=== PATIENT | male | born 1960 | race Caucasian/White ===

== ENCOUNTER 2019-12-31 18:04 | Emergency (ER) | payer BC ==
[2019-12-31] MEDS ORDERED: Tetracaine HCl/PF 0.5% 4 ML Bottle EYELF ONE (18:15)
[2019-12-31] MEDS ORDERED: Fluorescein 1 MG Ophth Strip EYELF ONE (18:16)
[2019-12-31] MEDS ORDERED: Ciprofloxacin 0.3% Ophth Soln 2.5 ML Bottle EYELF ONE (18:29)
--- NOTE | 2019-12-31 18:31 | EDM.PDOC ---
ED HPI GENERAL MEDICAL PROBLEM - General Chief Complaint: ENT Problem Stated Complaint: SOMETHING IN EYE Time Seen by Provider: 12/31/19 18:15 Source of Information: Reports: Patient History Limitations: Reports: No Limitations - History of Present Illness INITIAL COMMENTS - FREE TEXT/NARRATIVE: Patient presents to ER with complaints of a foreign object in his left eye. He was cutting on laminate pan outside today when a piece flew in to his eye. Did try to clean out his eye with a q-tip as well as did rinse eye but still feels as if something present. Eye is tearing, sensitive to light and has discomfort. No visual changes. Onset: Today, Sudden Duration: Minutes: Location: Reports: Face Quality: Reports: Burning Severity: Mild Associated Symptoms: Reports: No Other Symptoms Left Eye Pain Score (Numeric/FACES): 8 - Related Data Allergies Allergy/AdvReac Type Severity Reaction Status Date / Time codeine Allergy Hives Verified 12/31/19 18:18 Penicillins Allergy Hives Verified 12/31/19 18:18 Sulfa (Sulfonamide Allergy Other Verified 12/31/19 18:18 Antibiotics) Home Meds: Home Meds Montelukast [Singulair] 10 mg PO DAILY 08/28/19 [History] Past Medical History HEENT History: Reports: Allergic Rhinitis, Hard of Hearing, Other (See Below) Other HEENT History: tinnitis. tympanosclerosis Cardiovascular History: Reports: High Cholesterol, Syncope Respiratory History: Reports: Other (See Below) Other Respiratory History: wilbur bullosa Musculoskeletal History: Reports: Back Pain, Chronic, Other (See Below) Other Musculoskeletal History: olecranon bursitis. medial epicondylitis. r scapholunate ligament tear. SLAC. cervical spondylosis. cervicalalgia. left shoulder impingement syndrome. post traumatic osteoarthitis bilateral shoulders. elbow arthritis Neurological History: Reports: Concussion, Migraines, Other (See Below) Other Neuro History: headaches. radiculopathy of lumbar and thorasic. paresthesia of right arm Psychiatric History: Reports: Other (See Below) Other Psychiatric History: admustment reaction - Past Surgical History HEENT Surgical History: Reports: Tonsillectomy, Other (See Below) Other HEENT Surgeries/Procedures: stapedectomy GI Surgical History: Reports: Colonoscopy Musculoskeletal Surgical History: Reports: Arthroscopic Knee, Shoulder Surgery, Other (See Below) Other Musculoskeletal Surgeries/Procedures:: lumbar laminectomy. cervical spine fusion Social & Family History - Tobacco Use Smoking Status *Q: Never Smoker ED ROS GENERAL - Review of Systems Review Of Systems: Comprehensive ROS is negative, except as noted in HPI. ED EXAM GENERAL W FULL EYE - Physical Exam Exam: See Below Exam Limited By: No Limitations General Appearance: Alert, WD/WN, No Apparent Distress Eye Exam: Left Eye: Conjunctival Injection, Corneal Abrasion, Bilateral Eye: EOMI, PERRL Eyelids: Bilateral: Normal Appearance Conjunctiva & Sclera: Left: Foreign Body (small fragment removed from 9 o'clock region of his eye), Injected Cornea Exam: Left: Corneal Abrasion (has linear horizontal abrasion across iris region of eye) Extraocular Movements: Bilateral: Intact Pupils: Normal Accommodation Pupillary Size: Bilateral: 4 mm Pupillary Reaction: Bilateral: Brisk ED EYE w/ Add Procedure - Eye Procedure Alcaine Drops Administered: Yes Eye FB Removal: Removal w/ Cotton Swab Eye Irrigated w/ Saline (ccs): 10 Course - Vital Signs Last Recorded V/S: Last Vital Signs Temp 98.2 F 12/31/19 18:10 Pulse 76 12/31/19 18:10 Resp 16 12/31/19 18:10 BP 124/69 12/31/19 18:10 Pulse Ox 96 12/31/19 18:10 - Orders/Labs/Meds Meds: Medications Discontinued Medications Generic Name Dose Route Start Last Admin Trade Name Freq PRN Reason Stop Dose Admin Ciprofloxacin 1 ml 12/31/19 18:29 Ciloxan 0.3% Ophth Soln EYELF 12/31/19 18:30 ONETIME ONE Fluorescein Sodium 1 mg 12/31/19 18:16 Ful-Chelsea EYELF 12/31/19 18:17 ONETIME ONE Tetracaine HCl 1 ml 12/31/19 18:15 Tetracaine 0.5% Steri-Unit Tran EYELF 12/31/19 18:16 ONETIME ONE Departure - Departure Time of Disposition: 18:30 Disposition: Home, Self-Care 01 Condition: Good Clinical Impression: Corneal abrasion, left Qualifiers: Encounter type: initial encounter Qualified Code(s): S05.02XA - Injury of conjunctiva and corneal abrasion without foreign body, left eye, initial encounter - Discharge Information *PRESCRIPTION DRUG MONITORING PROGRAM REVIEWED*: No *COPY OF PRESCRIPTION DRUG MONITORING REPORT IN PATIENT BECCA: No Instructions: Eye Foreign Body, [id number], Corneal Abrasion, [id number] Referrals: PCP,None [Primary Care Provider] - Forms: ED Department Discharge Additional Instructions: 1. Start Ciloxan 3 drops to left eye three times a day for 7 days 2. Wear sun protection 3. Follow up if any vision changes occur or have increased pain Sepsis Event Note (ED) - Evaluation Sepsis Screening Result: No Definite Risk - Focused Exam Vital Signs: Vital Signs Temp Pulse Resp BP Pulse Ox 12/31/19 18:10 98.2 F 76 16 124/69 96
[2019-12-31 18:34] VITALS: BP 124/69; PULSE 76
== END 2019-12-31 18:49 | disposition home or self-care (01) ==
LOC: VM.ED 18:04
DX: T15.12XA Foreign body in conjunctival sac, left eye, initial encounter (principal); Z88.5 Allergy status to narcotic agent; Z88.0 Allergy status to penicillin; Z88.2 Allergy status to sulfonamides; Z79.899 Other long term (current) drug therapy
CPT/HCPCS: 65205; 99283; A9270-GY

== ENCOUNTER 2021-05-01 11:25 | Day surgery (SDC) | payer BC ==
[2021-05-01] MEDS: Lactated Ringers 1,000 ML IV SCH (11:55)
[2021-05-01] MEDS ORDERED: Propofol 200 MG/20 ML SDV ONE ×2 (12:39→14:07)
[2021-05-01] MEDS ORDERED: fentaNYL 100 MCG/2 ML SDV ONE (13:45)
[2021-05-01 14:40] VITALS: BP 131/74; PULSE 65
--- NOTE | 2021-05-02 09:23 | OR ---
DATE OF SURGERY: 05/01/2021 PREOPERATIVE DIAGNOSIS: Dysphagia, chronic. This seems to have developed since his previous neck surgery back in 07/2015. He gets choking sensation when bending over and has to regurgitate food frequently including breads, meats, and hot dogs. Denies any lower substernal dysphagia symptoms as symptoms are exclusively in the neck area. POSTOPERATIVE DIAGNOSES: 1. Moderate duodenitis of the duodenal bulb. Cold biopsy x4 bites taken of irritated prominent tissue there. 2. Mild diffuse gastritis. Cold biopsy x2 bites taken from the antrum. 3. Mild lower esophagitis. No strictures or rings noted. 4. Mild bile reflux noted within the gastric body. PROCEDURE: Esophagogastroduodenoscopy with cold biopsy x2 sites (duodenal bulb and antrum). SURGEON: Nam Cleveland M.D. ANESTHESIA: Monitored anesthesia care. DESCRIPTION OF PROCEDURE: Mitchell is a 61-year-old male who was brought to the endoscope suite after discussion of risks and benefits (including but not limited to reaction to medication, bleeding, infection, aspiration, perforation). Informed consent was obtained for monitored anesthesia care and esophagogastroduodenoscopy along with possible biopsy and/or dilatation. Pre-procedure exam including oral cavity was unremarkable. IV, oxygen, and monitors were placed. Patient was placed in the left lateral position and sedation was administered. A bite block was placed gently and scope lightly lubricated and passed through the bite block and over the tongue. Once I got into the hypopharynx, the patient did work the bite block out and had gagging episode due to oral secretions. It did come out and then we replaced the bite block before attempting to go back in. Scope was reinserted and then passed through the cricopharynx and into the esophagus. The scope was then passed through the distal esophagus and the GE junction was visualized and photographed. The GE junction was remarkable for some mild lower esophagitis. No strictures, rings, or masses were noted. The scope was advanced to the stomach and the gastric leak was suctioned. The patient did have some mild bile reflux noted. Pylorus was identified and intubated and then the scope was advanced to the third portion of the duodenum. The second and third portions of the duodenum were unremarkable. The duodenal bulb was visualized and revealed moderate duodenitis with prominent inflammatory-like tissue within the duodenal bulb. Cold biopsy x4 bites taken to exclude any dysplasia. The scope was then brought back into the stomach and the pylorus and antrum were remarkable for mild diffuse gastritis. Biopsies for H pylori and path were obtained from the antrum. Scope was then retroflexed to visualize the angularis, fundus, body, and cardia. These were remarkable for mild diffuse gastritis. During the biopsies from the duodenum and antrum, the patient again worked the bite block free and started the bite down on the scope. He also had gagging episode and woke up through the anesthesia. I did have to come all the way out suctioning on the way as he was gagging. After we got him sedated and the bite block replaced, I went back in and finished the biopsies from the duodenal bulb and antrum. Stomach was desufflated of air and then scope slowly withdrawn. Esophagus was closely visualized during withdrawal all the way into the posterior pharynx and this was unremarkable. The patient tolerated the procedure well and went to recovery in stable condition. The patient was monitored until at baseline status. Findings and discharge instructions were reviewed and the patient was discharged in good condition. COMPLICATIONS: None, but the patient did struggle with keeping the bite block in which caused several pauses in the procedure. The bite block did cause irritation to his gumline and lip with some mild bleeding. He had multiple gagging episodes with copious oral secretions. He did not like the scope sitting around the cricopharynx area as this does seem to be the area of his dysphagia symptoms. TOTAL TIME: 17 minutes. ESTIMATED BLOOD LOSS: About 2 mL. RECOMMENDATIONS/FOLLOWUP: We will await results of path report and send letter with results. Given the diffuse inflammation, we will start him on omeprazole 40 mg daily. Prescription will be provided. I do not see any obvious cause for his upper dysphagia on this EGD. Can consider video swallow study and esophagram as well. I would like to kindly thank Rex Edge for this referral. DMB: 05/01/2021 14:51:48 MODL: 05/01/2021 17:33:52 /[id number]
== END 2021-05-01 15:25 | disposition home or self-care (01) ==
LOC: VM.SDS 11:25
PROVIDERS: ATTEND Family Medicine
DX: K29.90 Gastroduodenitis, unspecified, without bleeding (principal); K20.90 Esophagitis, unspecified without bleeding; K21.9 Gastro-esophageal reflux disease without esophagitis; H10.9 Unspecified conjunctivitis; Z79.899 Other long term (current) drug therapy; Z88.0 Allergy status to penicillin; Z88.5 Allergy status to narcotic agent; Z88.2 Allergy status to sulfonamides; Z87.891 Personal history of nicotine dependence; Z98.890 Other specified postprocedural states
CPT/HCPCS: 00731; J2704; J3010; J7120